=== PATIENT | female | born 1975 | race Hispanic/Latino ===

== ENCOUNTER 2018-09-20 07:37 | Day surgery (SDC) | payer BC ==
[2018-09-20] VITALS (8 sets, daily range): BP systolic 118–126; BP diastolic 68–86
[~2018-09-20] VITALS: Ht 158.8 cm; Wt 77.0 kg
--- NOTE | 2018-09-20 07:45 | NUR ---
ASSESSMENT PT HERE FOR PROCEDURE WITH . DENIES ANY DISCOMFORT AT THIS TIME. DOES NOT TAKE ANY BLOOD THINNERS
[2018-09-20 08:13] LABS: INR 0.99 (0.85-1.15); PARTIAL THROMBOPLASTIN TIME 28.5 SEC (26.3-35.5); PROTHROMBIN TIME 10.4 SEC (9.6-11.6)
--- NOTE | 2018-09-20 09:40 | NUR ---
PROCEDURE PT TAKEN TO PROCEDURE VIA STRETCHER BY RADIOLOGY STAFF LUDWIG
[2018-09-20] MEDS ORDERED: LIDOCAINE HCL 1% 20 ML VIAL ONE (09:43)
[2018-09-20] MEDS ORDERED: MIDAZOLAM HCL 1 MG/ML 2ML VIAL ONE (09:43)
[2018-09-20] MEDS ORDERED: FENTANYL CITRATE PF 50 MCG/1 ML 2ML VIAL ONE (09:43)
[2018-09-20] MEDS ORDERED: SODIUM CHLORIDE 0.9% 1000ML 1,000 ML IV ONE (10:29)
--- NOTE | 2018-09-20 10:40 | NUR ---
U/S GUIDED LIVER BX PERFORMED BY DR. DUGAN. PUNCTURE SITE TO [facility] UPPER ABDOMEN AND PATIENT TOLERATED PROCEDURE WELL. SPECIMEN COLLECTED AND SENT TO LAB. END OF PROCEDURE AT 1040. BIOPSY NEEDLE REMOVED AND DRESSING APPLIED. NO BLEEDING NOTED. REPORT CALLED TO EMILIE PADRON RN IN DAY SURGERY. PATIENT LEFT AT 1100 IN NO DISTRESS, ABDOMINAL LEFT SIDE PUNCTURE SITE SHOWS NO ACTIVE BLEEDING.
--- NOTE | 2018-09-20 11:00 | NUR ---
ASSESSMENT PT HERE FROM PROCEDURE VIA STRETCHER. DRSG TO LEFT UPPER ABDOMEN SOFT TO TOUCH. NO BLEEDING, OOZING NOTED TO SITE. INSTRUCTED PT ON BEING ON BEDREST FOR 3 HOURS. IF NEEDING VOID, NEEDS TO USE BEDPAN. PT VERBALIZED UNDERSTANDING. AT BEDSIDE.
--- NOTE | 2018-09-20 11:15 | NUR ---
SITE CHECK DRSG TO LEFT UPPER ABDOMEN SOFT TO TOUCH. NO BLEEDING, OOZING NOTED TO SITE.
[2018-09-20] MEDS ORDERED: ACETAMINOPHEN-CODEINE 300/30MG TAB ONE (11:25)
--- NOTE | 2018-09-20 11:30 | NUR ---
SITE CHECK DRSG TO LEFT UPPER ABDOMEN SOFT TO TOUCH. NO BLEEDING, OOZING NOTED TO SITE.
--- NOTE | 2018-09-20 11:45 | NUR ---
SITE CHECK DRSG TO LEFT UPPER ABDOMEN SOFT TO TOUCH. NO BLEEDING, OOZING NOTED TO SITE.
[2018-09-20] MEDS ORDERED: SODIUM BICARB 50MEQ 50ML VIAL ONE (11:52)
--- NOTE | 2018-09-20 12:15 | NUR ---
SITE CHECK DRSG TO LEFT UPPER ABDOMEN SOFT TO TOUCH. NO BLEEDING, OOZING NOTED TO SITE.
--- NOTE | 2018-09-20 12:45 | NUR ---
SITE CHECK DRSG TO LEFT UPPER ABDOMEN SOFT TO TOUCH. NO BLEEDING, OOZING NOTED TO SITE.
--- NOTE | 2018-09-20 13:15 | NUR ---
SITE CHECK DRSG TO LEFT UPPER ABDOMEN SOFT TO TOUCH. NO BLEEDING, OOZING NOTED TO SITE.
--- NOTE | 2018-09-20 14:00 | NUR ---
DISCHARGE ORAL AND WRITTEN DISCHARGE INSTRUCTIONS GIVEN TO PT AND PTS MOTHER. INSTRUCTED TO FOLLOW RADIOLOGY DISCHARGE INSTRUCTIONS. DRSG TO LEFT UPPER ABD SOFT TO TOUCH. NO BLEEDING OR OOZING NOTED TO SITE.
== END 2018-09-20 14:33 | disposition home or self-care (01) ==
LOC: DAH 07:37 → EDSTATUS 08:00 → DAH 14:33
PROVIDERS: ATTEND Internal Medicine
DX: K75.81 Nonalcoholic steatohepatitis (NASH) (principal); Q85.9 Phakomatosis, unspecified; K29.70 Gastritis, unspecified, without bleeding; Z80.0 Family history of malignant neoplasm of digestive organs; Z79.899 Other long term (current) drug therapy; I10 Essential (primary) hypertension; Z85.3 Personal history of malignant neoplasm of breast; Z98.890 Other specified postprocedural states; Z68.30 Body mass index [BMI] 30.0-30.9, adult; K21.0 Gastro-esophageal reflux disease with esophagitis; E78.1 Pure hyperglyceridemia
CPT/HCPCS: 36415; 47000; 76942; 85610; 85730; 88307; A4606; C2615; J2250; J3010; J3490; J7030; 99152

== ENCOUNTER → 2018-09-28 | Outpatient (CLI) | payer BC ==
[~2018-09-28] MED LIST: IOHEXOL-350 75 ML VIAL IV ONE
== END | disposition home or self-care (01) ==
LOC: RAH 08:02
PROVIDERS: ATTEND Internal Medicine Gastroenterology
DX: K76.0 Fatty (change of) liver, not elsewhere classified (principal)
CPT/HCPCS: 74170; Q9967

== ENCOUNTER → 2019-05-15 | Outpatient (CLI) | payer OTHER | END | disposition home or self-care (01) | LOC: RAH 09:48 | PROVIDERS: ATTEND Nurse Practitioner Adult Health | DX: Z13.6 Encounter for screening for cardiovascular disorders (principal) | CPT/HCPCS: 75571 ==

== ENCOUNTER → 2023-09-19 | Outpatient (CLI) | payer OTHER | END | disposition home or self-care (01) | LOC: RAH 13:04 | PROVIDERS: ATTEND Nurse Practitioner Adult Health | DX: M85.89 Other specified disorders of bone density and structure, multiple sites (principal); N95.1 Menopausal and female climacteric states; R93.1 Abnormal findings on diagnostic imaging of heart and coronary circulation | CPT/HCPCS: 75571; 77080 ==